=== PATIENT | male | born 1970 | race Caucasian/White ===

== ENCOUNTER 2016-11-11 11:14 | Emergency (ER) | payer BC, OTHER ==
[~2016-11-11] VITALS: Ht 177.8 cm; Wt 93.0 kg
--- OUTSIDE RECORDS SUMMARY | 2016-11-11 11:21 | XMS REPORT ---
Author Author SCAR JACOBS Organization [employer] Address Unknown Phone Unavailable Care Team Providers Care Wood Finisher Name Role Phone SCAR JACOBS CP Unavailable Allergies No Known Allergies Problems Problem Type Condition Code Onset Dates Condition Status Assessment Elevated fasting blood sugar R73.01 Active Problem Essential hypertension I10 Active Medications No Known Medications Results No Known Results Summary Purpose [employer] Submission
--- NOTE | 2016-11-11 11:29 | ED Upper Extremity ---
General Stated Complaint: FALL/RIGHT ARM INJURY Source: patient Exam Limitations: no limitations History of Present Illness Time seen by provider: 11:28 Initial Comments To ER with reports of right arm fracture. He fell down his brother's porch. He was seen at [facility] last night diagnosed with fracture of radius and ulna and placed in a splint. They were referred to [place] [facility]. Orthopedics in [place] was unable to get the patient and immediately so they present here for orthopedics consult. He also states that he was only given Ultram for pain which is not helping. Onset: just prior to arrival Severity: moderate Pain/Injury Location: right forearm Method of Injury: fell Allergies and Home Medications Allergies Coded Allergies: No Known Drug Allergies (Unverified , 11/11/16) Home Medications Oxycodone HCl/Acetaminophen 1 Each Tablet #20 1 EACH PO Q4H PRN PRN PAIN Prescribed by: MEGHNA SALAMANCA on 11/11/16 1149 Constitutional: see HPI EENTM: see HPI Respiratory: no symptoms reported Cardiovascular: no symptoms reported Genitourinary: no symptoms reported Musculoskeletal: see HPI Skin: no symptoms reported Psychiatric/Neurological: No Symptoms Reported Past Aicvxoy-Wixfjt-Anurqz Hx Patient Social History Recent Foreign Travel: No Contact w/Someone Who Travel: No Physical Exam Vital Signs Vital Sign - Last 12Hours 11/11/16 11:20 Temp 97.5 Pulse 70 Resp 16 B/P 149/100 Pulse Ox 99 O2 Delivery Room Air Capillary Refill : General Appearance: WD/WN no apparent distress HEENT: PERRL/EOMI normal ENT inspection Neck: non-tender full range of motion Respiratory: no respiratory distress no accessory muscle use Gastrointestinal: non tender soft Shoulder: normal inspection non-tender Elbow/Forearm: Right, deformity, limited ROM, pain, soft tissue tenderness, swelling Wrist: Yes normal inspection, Yes non-tender Hand: normal inspection, non-tender, Right Neurologic/Tendon: normal sensation normal motor functions Neurologic/Psychiatric: alert normal mood/affect oriented x 3 Skin: normal color warm/dry Progress/Results/Core Measures Results/Orders My Orders Orders-MEGHNA SALAMANCA APRN Forearm, Right, 2 Views (11/11/16 11:27) Vital Signs/I&O Vital Sign - Last 12Hours 11/11/16 11:20 Temp 97.5 Pulse 70 Resp 16 B/P 149/100 Pulse Ox 99 O2 Delivery Room Air Departure Communication Progress Notes [id number] Garcia. He recommends sugar tong splinting and follow-up with them in the office on Monday. I then spoke with the retail center receptionist and scheduled an appointment on the patient's behalf Monday, at 215 p.m. 1153-patient reports to me that Dr. Garcia's office has already called him and would change the appointment to 930 in the morning on Monday. I have placed the patient in a sugar tong style splint using 3 inch Ortho-Glass. Impression Impression: Primary Impression: Wrist fracture, left Qualified Code: S62.102A - Fracture of unspecified carpal bone, left wrist, initial encounter for closed fracture Disposition: HOME, SELF-CARE Condition: Improved Departure-Patient Inst. Decision time for Depature: 11:48 Referrals: NO,LOCAL PHYSICIAN (PCP) Primary Care Physician MUNIR GARCIA MD Patient Instructions: Wrist Fracture (DC) Add. Discharge Instructions: 1. Keep the splint on at all times until you see Dr. Garcia 2. Be at Dr. Garcia's office Monday morning at 215 with a list of your current medications, insurance card and photo ID 3. Pain medication as directed 4. Keep the hand elevated as much as possible Scripts Oxycodone HCl/Acetaminophen (Percocet 5-325 mg Tablet)1 Each Tablet1 Each PO Q4H PRN PAIN #20 TAB Prov:MEGHNA SALAMANCA APRN 11/11/16 MEGHNA SALAMANCA APRN Nov 11, 2016 11:29
[2016-11-11] MEDS ORDERED: OXYC-197 PO (11:49)
[2016-11-11 11:50] VITALS: BP 142/90
--- NOTE | 2016-11-11 11:53 | Diagnostic Imaging Report ---
EXAM: Two views of the right forearm. Fall. FINDINGS: There is a comminuted dorsally angulated and slightly impacted fracture of the distal radius. There is displacement in the radial direction relative to the proximal fragment. No ulnar fracture seen. The fracture lines do not appear to extend to the radiocarpal joint. It extends to the distal radioulnar joint, however. The proximal ulna, radius and radioulnar joint appear unremarkable. IMPRESSION: Comminuted slightly displaced, angulated and impacted fracture of the distal right radius. The findings were discussed with Carlo Dangelo APRN, at the time of dictation. Dictated by: Dictated on workstation # [id number]
== END 2016-11-11 11:50 | disposition home or self-care (01) ==
LOC: ER 11:17
DX: S52.351A Displaced comminuted fracture of shaft of radius, right arm, initial encounter for closed fracture (principal); W17.89XA Other fall from one level to another, initial encounter; Y92.018 Other place in single-family (private) house as the place of occurrence of the external cause; Y99.8 Other external cause status
CPT/HCPCS: 29125; 73090